=== PATIENT | female | born 1975 | race Caucasian/White ===

== ENCOUNTER 2018-09-24 14:50 | Emergency (ER) | payer OTHER ==
[~2018-09-24] VITALS: Ht 172.7 cm; Wt 131.5 kg
[2018-09-24 14:54] VITALS: BP 125/104
[2018-09-24] MEDS ORDERED: PANTOPRAZOLE 40 MG INJ VIAL IVP ONE (15:45)
[2018-09-24] MEDS ORDERED: METOCLOPRAMIDE 10 MG/2 ML INJ VIAL IVP ONE (15:45)
[2018-09-24] MEDS ORDERED: NACL 0.9% 1,000 ML IV ONE (15:45)
[2018-09-24] MEDS ORDERED: MORPHINE SULFATE 4 MG/ML SYR IVP ONE (15:45)
[2018-09-24 16:12] LABS: BASOPHILS # (AUTO) 0.1 K/uL (0.00-0.22); BASOPHILS % (AUTO) 1.3 % (0.0-2.0); EOSINOPHILS # (AUTO) 0.3 K/uL (0-0.4); EOSINOPHILS % (AUTO) 5.1 % (0.0-4.0); HEMATOCRIT 37.9 % (36-48); HEMOGLOBIN 12.5 g/dL (12.0-16.0); LYMPHOCYTES % (AUTO) 37.6 % (20.5-51.1); MEAN CORPUSCULAR HEMOGLOBIN 30 pg (27-31); MEAN CORPUSCULAR HGB CONC 33 g/dL (33-37); MEAN CORPUSCULAR VOLUME 89.6 fL (80-94); MONOCYTES # (AUTO) 0.5 K/uL (0.8-1.0); MONOCYTES % (AUTO) 9.1 % (1.7-9.3); NEUTROPHILS # (AUTO) 2.5 K/uL (1.8-7.7); NEUTROPHILS % (AUTO) 46.9 % (42.2-75.2); PLATELET COUNT (AUTO) 229 K/uL (140-450); RED BLOOD CELL COUNT(AUTO) 4.23 MIL/uL (4.20-5.40); RED CELL DISTRIBUTION WIDTH 14.2 % (11.6-13.7); WHITE BLOOD COUNT (AUTO) 5.2 K/uL (4.8-10.8)
[2018-09-24 16:13] LABS: APPEARANCE,URINE CLEAR (CLEAR); BILIRUBIN,URINE NEGATIVE (NEGATIVE); BLOOD, URINE NEGATIVE (NEGATIVE); COLOR,URINE YELLOW (YELLOW); LEUKOCYTE ESTERASE ,URINE NEGATIVE (NEGATIVE); NITRITE, URINE NEGATIVE (NEGATIVE); UGLUCOSE NEGATIVE (NEGATIVE)
[2018-09-24 16:43] LABS: ALBUMIN 3.8 g/dL (3.4-5.0); ANION GAP 14.5 (8-16); CARBON DIOXIDE 27.3 mmol/L (21-32); CREATININE 0.8 mg/dL (0.6-1.3); POTASSIUM 3.8 mmol/L (3.5-5.1); TOTAL BILIRUBIN 0.2 mg/dL (0.0-1.0)
[2018-09-24 16:50] LABS: PROTHROMBIN TIME 9.8 secs (10.8-13.4)
[2018-09-24 17:50] VITALS: BP 121/85
== END 2018-09-24 17:50 | disposition home or self-care (01) ==
LOC: MED 14:50
DX: R10.9 Unspecified abdominal pain (principal); R11.0 Nausea; K62.5 Hemorrhage of anus and rectum; Z88.6 Allergy status to analgesic agent; Z88.1 Allergy status to other antibiotic agents; Z88.2 Allergy status to sulfonamides; Z88.8 Allergy status to other drugs, medicaments and biological substances
CPT/HCPCS: 36415; 74176; 80053; 81003; 82150; 83690; 85025; 85610; 85730; 86886; 86900; 86901; 96374; 96375; 99284; C9113; J2270; J2765; J7030

== ENCOUNTER 2019-02-07 21:39 | Emergency (ER) | payer OTHER ==
[~2019-02-07] VITALS: Ht 170.2 cm; Wt 131.5 kg
--- NOTE | 2019-02-07 21:45 | NUR ---
PT AMBULATED TO ER BED 07
[2019-02-07 21:49] VITALS: BP 162/96
--- NOTE | 2019-02-07 22:01 | NUR ---
BIB SELF REPORTS SORE THROAT AND HEADACHE SINCE TODAY WITH MILD ITCHINESS TO FEET. DENIES OTHER SYMPTOMS AT THIS TIME. VSS.
[2019-02-07] MEDS ORDERED: IBUPROFEN 800 MG TAB PO ONE (22:45)
[2019-02-07 23:03] VITALS: BP 129/83
--- NOTE | 2019-02-07 23:03 | NUR ---
Patient discharged with v/s stable. Written and verbal after care instructions given and explained. Patient verbalized understanding. Ambulatory with steady gait. All questions addressed prior to discharge. Advised to follow up with PMD.
== END 2019-02-07 23:03 | disposition home or self-care (01) ==
LOC: MED 21:39
DX: B08.4 Enteroviral vesicular stomatitis with exanthem (principal); J02.8 Acute pharyngitis due to other specified organisms; B97.89 Other viral agents as the cause of diseases classified elsewhere; Z88.1 Allergy status to other antibiotic agents; Z88.2 Allergy status to sulfonamides; Z88.8 Allergy status to other drugs, medicaments and biological substances
CPT/HCPCS: 99282

== ENCOUNTER 2019-04-05 08:17 | Emergency (ER) | payer OTHER ==
[~2019-04-05] VITALS: Ht 170.2 cm; Wt 128.1 kg
[2019-04-05 08:31] VITALS: BP 139/87
[2019-04-05] MEDS ORDERED: MSCON30 PO (08:37)
--- NOTE | 2019-04-05 08:38 | NUR ---
PATIENT AMBULATED TO BED 3 AT THIS TIME.
[2019-04-05] MEDS ORDERED: KETOROLAC 30 MG/ML VIAL IVP ONE (08:45)
[2019-04-05] MEDS ORDERED: NACL 0.9% 1,000 ML IV ONE (08:45)
--- NOTE | 2019-04-05 08:54 | NUR ---
PT BIB SELF C/O SEVERE HEADACHE AND VOMITING SINCE LAST NIGHT. NON-RADIATING THROBING PAIN IN RT SIDE OF HEAD AT 10/10. PT REPORTS FREQUENT MIGRANES BUT STATES THIS ONE FEELS DIFFERENT. PT AAOX4, COOPERATIVE, FACIAL SYMMETRY INTACT, BUE AND BLE EQUAL/STRONG, GAIT STEADY, PERRLA. VSS. ER TO SEE PT. MEDHX:MIGRAINE, A-FIB, MULTIPLE SURGIES, DVT, HYSTERECTOMY
--- NOTE | 2019-04-05 09:30 | NUR ---
DR. CASTAÑEDA AT BEDSIDE EVALUATING PATIENT.
[2019-04-05] MEDS ORDERED: diphenhydrAMINE 50 MG/ML VIAL IVP ONE (09:40)
[2019-04-05] MEDS ORDERED: METOCLOPRAMIDE 10 MG/2 ML INJ VIAL IVP ONE (09:40)
--- NOTE | 2019-04-05 10:24 | NUR ---
PT WAS SLEEPING IN BED, AROUSABLE TO NAME. PT REPORTS THAT HER PAIN HAS DECREASED TO 7/10 AND IS NOW TOLERABLE. PT AMBULATED TO RESTROOM AT THIS TIME. VSS.
[2019-04-05 11:20] VITALS: BP 111/62
--- NOTE | 2019-04-05 11:20 | NUR ---
Patient discharged with v/s stable. Written and verbal after care instructions given and explained. Patient alert, oriented and verbalized understanding of instructions. Ambulatory with steady gait. All questions addressed prior to discharge. ID band removed. Patient advised to follow up with PMD. Rx of MOTRIN, ZOFRAN, AND NORCO given. Patient educated on indication of medication including possible reaction and side effects. Opportunity to ask questions provided and answered.
== END 2019-04-05 11:20 | disposition home or self-care (01) ==
LOC: MED 08:17
DX: J02.9 Acute pharyngitis, unspecified (principal); R11.2 Nausea with vomiting, unspecified; Z98.890 Other specified postprocedural states; Z90.710 Acquired absence of both cervix and uterus; Z79.899 Other long term (current) drug therapy; Z88.2 Allergy status to sulfonamides; Z88.1 Allergy status to other antibiotic agents; Z88.6 Allergy status to analgesic agent; Z88.8 Allergy status to other drugs, medicaments and biological substances
CPT/HCPCS: 81002; 81025; 96361; 96374; 96375; 99283; J1200; J1885; J2765; J7030

== ENCOUNTER 2019-06-12 15:26 | Emergency (ER) | payer OTHER ==
[~2019-06-12] VITALS: Ht 170.2 cm; Wt 131.7 kg
[~2019-06-12 15:26] MED LIST: MSCON30 PO
[2019-06-12 15:42] VITALS: BP 154/99
--- NOTE | 2019-06-12 15:42 | NUR ---
TRIAGE COMPLETE. VSS. OKAY TO WAIT IN LOBBY FOR BED IN ED. EKG SHOWN TO MD.
[2019-06-12 16:44] LABS: APPEARANCE,URINE CLEAR (CLEAR); BILIRUBIN,URINE NEGATIVE (NEGATIVE); BLOOD, URINE NEGATIVE (NEGATIVE); COLOR,URINE YELLOW (YELLOW); LEUKOCYTE ESTERASE ,URINE NEGATIVE (NEGATIVE); NITRITE, URINE NEGATIVE (NEGATIVE); PH,URINE 5.5 (5.0-9.0); UGLUCOSE NEGATIVE (NEGATIVE)
--- NOTE | 2019-06-12 17:24 | NUR ---
PT TO ER BED 6
--- NOTE | 2019-06-12 18:19 | NUR ---
PT BIB SELF WITGH C/O BILATERAL FLANK PAIN RADIATING TO CHEST/ABDOMEN X 1 DAY . PAIN AT THE EPIGASTRIC REGION , SHARP. STATES TO HAVE SQUEEZING PAIN AT THE RT FLANK. PAIN 10/10. INCREASES WITH WALKING. PT REPORTS TO HAVE SWELLING ALL OVER THE BODY WITH STOMACH DISTENSION. PT SEEN BY ER MD. WILL CONTINUE TO MOBNITOR PT. HX-AFIB, LUPUS, BACK SX WITH METAL HARDWARE
[2019-06-12] MEDS ORDERED: MORPHINE SULFATE 10 MG/ML VIAL IM ONE (18:35)
--- NOTE | 2019-06-12 18:36 | NUR ---
PT BEING TAKEN TO CT.
--- NOTE | 2019-06-12 19:24 | NUR ---
REPORT GIVEN TO PM RN AT THE BEDSIDE.
[2019-06-12 19:30] LABS: BASOPHILS % (AUTO) 0.4 % (0.0-2.0); EOSINOPHILS # (AUTO) 0.5 K/uL (0-0.4); EOSINOPHILS % (AUTO) 7.8 % (0.0-4.0); HEMATOCRIT 36.8 % (36-48); HEMOGLOBIN 12.4 g/dL (12.0-16.0); LYMPHOCYTES % (AUTO) 32.1 % (20.5-51.1); MEAN CORPUSCULAR HEMOGLOBIN 30 pg (27-31); MEAN CORPUSCULAR HGB CONC 34 g/dL (33-37); MEAN CORPUSCULAR VOLUME 90.2 fL (80-94); MONOCYTES # (AUTO) 0.4 K/uL (0.8-1.0); MONOCYTES % (AUTO) 6.5 % (1.7-9.3); NEUTROPHILS # (AUTO) 3.3 K/uL (1.8-7.7); NEUTROPHILS % (AUTO) 53.2 % (42.2-75.2); PLATELET COUNT (AUTO) 234 K/uL (140-450); RED BLOOD CELL COUNT(AUTO) 4.08 MIL/uL (4.20-5.40); RED CELL DISTRIBUTION WIDTH 13.6 % (11.6-13.7); WHITE BLOOD COUNT (AUTO) 6.2 K/uL (4.8-10.8)
[2019-06-12 19:43] LABS: ANION GAP 11.8 (8-16); CARBON DIOXIDE 27.9 mmol/L (21-32); CREATININE 0.7 mg/dL (0.6-1.3); POTASSIUM 3.7 mmol/L (3.5-5.1)
[2019-06-12 19:49] LABS: ALBUMIN 3.7 g/dL (3.4-5.0); TOTAL BILIRUBIN 0.2 mg/dL (0.0-1.0)
[2019-06-12] MEDS ORDERED: KETOROLAC 30 MG/ML VIAL IM ONE (20:20)
[2019-06-12 21:03] VITALS: BP 129/73
--- NOTE | 2019-06-12 21:03 | NUR ---
Patient discharged with v/s stable. Written and verbal after care instructions given and explained. Patient verbalized understanding. Ambulatory with to home. All questions addressed prior to discharge. Advised to follow up with PMD.
== END 2019-06-12 21:03 | disposition home or self-care (01) ==
LOC: MED 15:26
DX: R10.9 Unspecified abdominal pain (principal); G89.29 Other chronic pain; M79.605 Pain in left leg; M79.604 Pain in right leg; K76.0 Fatty (change of) liver, not elsewhere classified; Z98.890 Other specified postprocedural states; Z79.899 Other long term (current) drug therapy; Z88.1 Allergy status to other antibiotic agents; Z88.2 Allergy status to sulfonamides; Z88.8 Allergy status to other drugs, medicaments and biological substances
CPT/HCPCS: 36415; 74176; 80053; 81003; 81025; 83690; 85025; 96372; 99284; J1885; J2270; 93005

== ENCOUNTER 2019-07-06 23:41 | Emergency (ER) | payer OTHER ==
[~2019-07-06] VITALS: Ht 172.7 cm; Wt 117.9 kg
[2019-07-06 23:49] VITALS: BP 139/89
--- NOTE | 2019-07-06 23:49 | NUR ---
PT AMBULATED TO BED #12
--- NOTE | 2019-07-07 00:15 | NUR ---
43/F PRESENTS TO ED, C/O SUDDEN ONSET SHARP RLQ PAIN, X30 MINS. REPORTS N/V. REPORTS NORMAL BM, DENIES CONSTIPATION OR DIARRHEA. AFEBRILE. PT AWAKE AND ALERT, IN MODERATE PAIN DISTRESS, SKIN NORMAL COLOR WARM AND DRY, RR EVEN AND UNLABORED. HX LUPUS, DVT, A.FIB Addendum: 07/07/19 at 0043 by [email or web address] ADDED MED HX: GASTRIC ULCER
--- NOTE | 2019-07-07 00:46 | NUR ---
PT EVALUATED BY DR. ENNIS
[2019-07-07] MEDS ORDERED: NACL 0.9% 1,000 ML IV ONE (00:47)
[2019-07-07] MEDS ORDERED: MORPHINE SULFATE 4 MG/ML SYR IVP ONE (00:50)
[2019-07-07] MEDS ORDERED: METOCLOPRAMIDE 10 MG/2 ML INJ VIAL IVP ONE (00:50)
[2019-07-07 01:12] LABS: BASOPHILS # (AUTO) 0.1 K/uL (0.00-0.22); BASOPHILS % (AUTO) 1.2 % (0.0-2.0); EOSINOPHILS # (AUTO) 0.3 K/uL (0-0.4); EOSINOPHILS % (AUTO) 4.1 % (0.0-4.0); HEMATOCRIT 35.2 % (36-48); HEMOGLOBIN 11.9 g/dL (12.0-16.0); LYMPHOCYTES % (AUTO) 32.7 % (20.5-51.1); MEAN CORPUSCULAR HEMOGLOBIN 30 pg (27-31); MEAN CORPUSCULAR HGB CONC 34 g/dL (33-37); MEAN CORPUSCULAR VOLUME 89.6 fL (80-94); MONOCYTES # (AUTO) 0.4 K/uL (0.8-1.0); NEUTROPHILS # (AUTO) 3.4 K/uL (1.8-7.7); PLATELET COUNT (AUTO) 202 K/uL (140-450); RED BLOOD CELL COUNT(AUTO) 3.93 MIL/uL (4.20-5.40); RED CELL DISTRIBUTION WIDTH 13.6 % (11.6-13.7); WHITE BLOOD COUNT (AUTO) 6.2 K/uL (4.8-10.8)
[2019-07-07 01:13] LABS: APPEARANCE,URINE CLOUDY (CLEAR); BILIRUBIN,URINE NEGATIVE (NEGATIVE); BLOOD, URINE NEGATIVE (NEGATIVE); COLOR,URINE YELLOW (YELLOW); LEUKOCYTE ESTERASE ,URINE NEGATIVE (NEGATIVE); NITRITE, URINE NEGATIVE (NEGATIVE); UGLUCOSE NEGATIVE (NEGATIVE)
--- NOTE | 2019-07-07 01:18 | NUR ---
PT AT CT DURING THIS TIME
[2019-07-07 01:27] LABS: ALBUMIN 3.7 g/dL (3.4-5.0); ANION GAP 10.8 (8-16); CARBON DIOXIDE 28.5 mmol/L (21-32); CREATININE 0.9 mg/dL (0.6-1.3); POTASSIUM 3.3 mmol/L (3.5-5.1); TOTAL BILIRUBIN 0.2 mg/dL (0.0-1.0)
[2019-07-07] MEDS ORDERED: MORPHINE SULFATE 10 MG/ML VIAL IVP ONE (02:20)
[2019-07-07] MEDS ORDERED: KETOROLAC 30 MG/ML VIAL IVP ONE (02:20)
--- NOTE | 2019-07-07 02:30 | NUR ---
PT RESTING IN BED. NO SIGNS OF DISTRESS NOTED. WILL CONTINUE TO MONITOR.
[2019-07-07 04:00] VITALS: BP 126/75
--- NOTE | 2019-07-07 04:00 | NUR ---
Patient discharged with v/s stable. Written and verbal after care instructions given and explained. Patient alert, oriented and verbalized understanding of instructions. Ambulatory with steady gait. All questions addressed prior to discharge. ID band removed. Patient advised to follow up with PMD. Rx of NORCO, NAPROSYN given. Patient educated on indication of medication including possible reaction and side effects. Opportunity to ask questions provided and answered.
== END 2019-07-07 04:00 | disposition home or self-care (01) ==
LOC: MED 23:41
DX: R10.31 Right lower quadrant pain (principal); R11.2 Nausea with vomiting, unspecified; I48.91 Unspecified atrial fibrillation; Z86.718 Personal history of other venous thrombosis and embolism; Z98.890 Other specified postprocedural states; Z79.891 Long term (current) use of opiate analgesic; Z88.2 Allergy status to sulfonamides; Z88.1 Allergy status to other antibiotic agents; Z88.8 Allergy status to other drugs, medicaments and biological substances; Z88.5 Allergy status to narcotic agent
CPT/HCPCS: 36415; 74176; 80053; 81003; 81025; 83690; 85025; 96361; 96374; 96375; 96376; 99284; J1885; J2270; J2765; J7030

== ENCOUNTER 2019-11-04 13:05 | Emergency (ER) | payer OTHER ==
[~2019-11-04] VITALS: Ht 167.6 cm; Wt 121.8 kg
[2019-11-04 13:13] VITALS: BP 154/103
[2019-11-04] MEDS ORDERED: ACETAMINOPHEN 325 MG TAB PO ONE (13:35)
[2019-11-04] MEDS ORDERED: NACL 0.9% 1,000 ML IV ONE ×2 (13:35→16:10)
--- NOTE | 2019-11-04 13:37 | NUR ---
PT C/O SYNCOPE EPISODE WHILE AT WORK AROUND 1140 TODAY. DENIES HITTING HEAD. STATES 8/10 HEADACHE. VSS; PATIENT POSITIONED FOR COMFORT; HOB ELEVATED; BEDRAILS UP X2; BED DOWN. ER MD MADE AWARE OF PT STATUS. PT IS ON MINITOR.
--- NOTE | 2019-11-04 13:51 | NUR ---
Patient taken to CT scan via wheelchair by tech.
[2019-11-04 14:22] LABS: BASOPHILS % (AUTO) 0.3 % (0.0-2.0); EOSINOPHILS # (AUTO) 0.1 K/uL (0-0.4); EOSINOPHILS % (AUTO) 2.6 % (0.0-4.0); HEMATOCRIT 35.5 % (36-48); HEMOGLOBIN 11.8 g/dL (12.0-16.0); LYMPHOCYTES # (AUTO) 1.9 K/uL (2.5-16.5); LYMPHOCYTES % (AUTO) 35.4 % (20.5-51.1); MEAN CORPUSCULAR HEMOGLOBIN 30 pg (27-31); MEAN CORPUSCULAR HGB CONC 33 g/dL (33-37); MEAN CORPUSCULAR VOLUME 91.8 fL (80-94); MONOCYTES # (AUTO) 0.5 K/uL (0.8-1.0); MONOCYTES % (AUTO) 8.7 % (1.7-9.3); NEUTROPHILS # (AUTO) 2.8 K/uL (1.8-7.7); PLATELET COUNT (AUTO) 223 K/uL (140-450); RED BLOOD CELL COUNT(AUTO) 3.87 MIL/uL (4.20-5.40); RED CELL DISTRIBUTION WIDTH 15.3 % (11.6-13.7); WHITE BLOOD COUNT (AUTO) 5.3 K/uL (4.8-10.8)
--- NOTE | 2019-11-04 14:37 | NUR ---
Danielle peres in ED - 11/04/19 at 1438 by MEDSP PT AMBULATED TO BATHROOM W/ STEADY GAIT. PT REPORTS HAVING SEVERE MADRIGAL STILL, DR. EDOUARD NOTIFIED.
--- NOTE | 2019-11-04 14:38 | NUR ---
PT AMBULATED TO BATHROOM W/ STEADY GAIT. PT REPORTS HAVING SEVERE MADRIGAL STILL, DR. EDOUARD NOTIFIED.
[2019-11-04] MEDS ORDERED: KETOROLAC 30 MG/ML VIAL IVP ONE (14:40)
[2019-11-04 14:42] LABS: ALBUMIN 3.9 g/dL (3.4-5.0); ANION GAP 11.1 (8-16); CARBON DIOXIDE 27.6 mmol/L (21-32); CREATININE 0.7 mg/dL (0.6-1.3); POTASSIUM 3.7 mmol/L (3.5-5.1); TOTAL BILIRUBIN 0.3 mg/dL (0.0-1.0)
[2019-11-04] MEDS ORDERED: MORPHINE SULFATE 4 MG/ML SYR IVP ONE (15:00)
[2019-11-04] MEDS ORDERED: METOCLOPRAMIDE 10 MG/2 ML INJ VIAL IVP ONE (15:00)
--- NOTE | 2019-11-04 15:18 | NUR ---
DR. EDOUARD IS AT BEDSIDE FOR LUMBAR PUNCTURE PROCEDURE.
[2019-11-04] MEDS ORDERED: LIDOCAINE 2% 1000 MG/50 ML VIAL INJ ONE (15:25)
[2019-11-04] MEDS ORDERED: HYDROmorphone PFS 2 MG/ML SYR IVP ONE (15:40)
--- NOTE | 2019-11-04 16:32 | NUR ---
PT IS LYING FLAT IN THE BED AND ON THE MONITOR. WILL CONTINUE MONITOR PT'S VITAL SIGNS.
[2019-11-04 17:18] VITALS: BP 99/54
--- NOTE | 2019-11-04 17:18 | NUR ---
Patient does not wish to proceed with medical care recommended by DR EDOUARD. Patient given information related to possible complications, up to and including , which could occur as a result of leaving hospital at this time. Patient verbalizes understanding of risks involved leaving against medical advice. Patient has signed AMA form.
== END 2019-11-04 17:18 | disposition left against medical advice (07) ==
LOC: MED 13:05
DX: R51 Headache (principal); R55 Syncope and collapse; R07.9 Chest pain, unspecified; Z86.79 Personal history of other diseases of the circulatory system; Z98.890 Other specified postprocedural states; Z88.2 Allergy status to sulfonamides; Z88.8 Allergy status to other drugs, medicaments and biological substances; Z88.1 Allergy status to other antibiotic agents; Z88.6 Allergy status to analgesic agent; Z79.899 Other long term (current) drug therapy
CPT/HCPCS: 36415; 62270; 70450; 80053; 81025; 84484; 85025; 93005; 96361; 96374; 96375; 99285; J1170; J1885; J2001; J2270; J2765; J7030

== ENCOUNTER 2020-02-17 19:11 | Emergency (ER) | payer OTHER ==
[~2020-02-17] VITALS: Ht 172.7 cm; Wt 112.9 kg
[2020-02-17 19:22] VITALS: BP 155/98
[2020-02-17] MEDS ORDERED: HYDROcodone/APAP 5/325 MG 1 TAB TAB PO ONE (22:15)
[2020-02-17 22:44] VITALS: BP 148/81
== END 2020-02-17 22:44 | disposition home or self-care (01) ==
LOC: MED 19:11
DX: M25.561 Pain in right knee (principal); I51.89 Other ill-defined heart diseases; Z88.2 Allergy status to sulfonamides; Z88.1 Allergy status to other antibiotic agents; Z88.6 Allergy status to analgesic agent; Z88.8 Allergy status to other drugs, medicaments and biological substances; Z88.3 Allergy status to other anti-infective agents; Z91.013 Allergy to seafood; Z79.899 Other long term (current) drug therapy; Z98.890 Other specified postprocedural states
CPT/HCPCS: 73562; 93971; 99284; Q0092

== ENCOUNTER 2020-03-18 12:55 | Emergency (ER) | payer OTHER ==
[~2020-03-18] VITALS: Ht 172.7 cm; Wt 112.0 kg
[2020-03-18 13:10] VITALS: BP 139/74
--- NOTE | 2020-03-18 13:22 | NUR ---
pt amb to bed 04
--- NOTE | 2020-03-18 13:25 | NUR ---
DR. RANGEL AT BEDSIDE.
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
[2020-03-18] MEDS ORDERED: KETOROLAC 30 MG/ML VIAL IVP ONE (13:50)
[2020-03-18] MEDS ORDERED: NACL 0.9% 500 ML IV ONE (13:50)
[2020-03-18] MEDS ORDERED: TETRACAINE HCL/PF 0.5% OPTH 4 ML BTL ONE (14:19)
[2020-03-18] MEDS ORDERED: TETRACAINE 1% 2 ML AMP INJ ONE (14:20)
[2020-03-18 15:16] VITALS: BP 132/72
--- NOTE | 2020-03-18 15:17 | NUR ---
Patient discharged with v/s stable. Written and verbal after care instructions given and explained. Patient alert, oriented and verbalized understanding of instructions. Ambulatory with steady gait. All questions addressed prior to discharge. ID band removed. Patient advised to follow up with PMD. Rx of KETOROLAC given. Patient educated on indication of medication including possible reaction and side effects. Opportunity to ask questions provided and answered.
== END 2020-03-18 15:16 | disposition home or self-care (01) ==
LOC: MED 12:55
DX: H10.13 Acute atopic conjunctivitis, bilateral (principal); K59.00 Constipation, unspecified; I82.401 Acute embolism and thrombosis of unspecified deep veins of right lower extremity; I51.89 Other ill-defined heart diseases; Z88.2 Allergy status to sulfonamides; Z88.1 Allergy status to other antibiotic agents; Z88.6 Allergy status to analgesic agent; Z88.3 Allergy status to other anti-infective agents; Z91.013 Allergy to seafood; Z79.899 Other long term (current) drug therapy; Z87.39 Personal history of other diseases of the musculoskeletal system and connective tissue
CPT/HCPCS: 74022; 96374; 99283; J1885; J7030; J3490

== ENCOUNTER 2023-01-28 19:17 | Emergency (ER) | payer OTHER ==
[~2023-01-28] VITALS: Ht 167.6 cm; Wt 108.9 kg
--- NOTE | 2023-01-28 19:28 | NUR ---
PT TAKEN TO BED 1
[2023-01-28 19:32] VITALS: BP 162/97
[2023-01-28] MEDS ORDERED: LORazepam 2 MG/ML VIAL IVP ONE (19:35)
[2023-01-28] MEDS ORDERED: NACL 0.9% 1,000 ML IV ONE (19:35)
[2023-01-28 20:03] LABS: BASOPHILS % (AUTO) 0.7 % (0.0-2.0); EOSINOPHILS % (AUTO) 0.3 % (0.0-4.0); HEMATOCRIT 35.7 % (36-48); HEMOGLOBIN 12.4 g/dL (12.0-16.0); LYMPHOCYTES # (AUTO) 1.2 K/uL (2.5-16.5); LYMPHOCYTES % (AUTO) 17.5 % (20.5-51.1); MEAN CORPUSCULAR HEMOGLOBIN 31 pg (27-31); MEAN CORPUSCULAR HGB CONC 35 g/dL (33-37); MEAN CORPUSCULAR VOLUME 88.2 fL (80-94); MONOCYTES # (AUTO) 0.5 K/uL (0.8-1.0); MONOCYTES % (AUTO) 7.3 % (1.7-9.3); NEUTROPHILS # (AUTO) 5.2 K/uL (1.8-7.7); NEUTROPHILS % (AUTO) 74.2 % (42.2-75.2); PLATELET COUNT (AUTO) 260 K/uL (140-450); RED BLOOD CELL COUNT(AUTO) 4.05 MIL/uL (4.20-5.40); RED CELL DISTRIBUTION WIDTH 14.2 % (11.6-13.7)
[2023-01-28 20:16] LABS: PROTHROMBIN TIME 9.8 secs (10.8-13.4)
[2023-01-28 20:19] LABS: ALBUMIN 3.6 g/dL (3.4-5.0); ANION GAP 11.3 (8-16); CARBON DIOXIDE 26.8 mmol/L (21-32); CREATININE 0.8 mg/dL (0.6-1.3); POTASSIUM 3.1 mmol/L (3.5-5.1); TOTAL BILIRUBIN 0.3 mg/dL (0.0-1.0)
[2023-01-28 20:25] LABS: LIPASE 72 U/L (73-393)
[2023-01-28] MEDS ORDERED: LORazepam 2 MG/ML VIAL ONE (20:37)
--- NOTE | 2023-01-28 20:51 | NUR ---
Patient asked to give urine for test. Patient stated, "I can't be , I have no uterus."
--- NOTE | 2023-01-28 21:00 | NUR ---
Patient resting in bed, A/Ox4, chest rise and fall symmetrical, on monitor, no s/s of distress
[2023-01-28] MEDS ORDERED: ACETAMINOPHEN EXTRA STRENGTH 500 MG TAB PO ONE (21:30)
[2023-01-28] MEDS ORDERED: diphenhydrAMINE 50 MG/ML VIAL IVP ONE (21:30)
[2023-01-28] MEDS ORDERED: KETOROLAC 30 MG/ML VIAL IVP ONE (21:30)
[2023-01-28] MEDS ORDERED: METOCLOPRAMIDE 10 MG/2 ML INJ VIAL IVP ONE (21:30)
--- NOTE | 2023-01-28 22:00 | NUR ---
Patient resting in bed, A/Ox4, chest rise and fall symmetrical, on monitor, no c/o pain or s/s of distress.
[2023-01-28] MEDS ORDERED: METO-485 PO (22:55)
[2023-01-28] MEDS ORDERED: ACET-10509 PO (22:55)
[2023-01-29 00:09] VITALS: BP 129/84
== END 2023-01-28 23:40 | disposition home or self-care (01) ==
LOC: MED 19:17
DX: R07.89 Other chest pain (principal); F43.20 Adjustment disorder, unspecified; F43.0 Acute stress reaction; I10 Essential (primary) hypertension; I25.10 Atherosclerotic heart disease of native coronary artery without angina pectoris; Z88.2 Allergy status to sulfonamides; Z88.5 Allergy status to narcotic agent; Z88.8 Allergy status to other drugs, medicaments and biological substances; Z79.899 Other long term (current) drug therapy
CPT/HCPCS: 36415; 71045; 80053; 83690; 83880; 84484; 85025; 85610; 85730; 93005; 96361; 96374; 96375; 99285; J1200; J1885; J2060; J2765; J7030

== ENCOUNTER 2023-12-15 12:29 | Observation (INO) | payer OTHER ==
[~2023-12-15] VITALS: Ht 170.2 cm; Wt 99.8 kg
[~2023-12-15 12:29] MED LIST changes: +ACET-10509 PO; +METO-485 PO
[2023-12-15 12:48] VITALS: BP 154/87; PULSE 83; RESP 18; TEMP 97.1; O2SAT 98
[2023-12-15 13:56] LABS: BASOPHILS # (AUTO) 0.1 K/uL (0.00-0.22); BASOPHILS % (AUTO) 1.3 % (0.0-2.0); EOSINOPHILS # (AUTO) 0.1 K/uL (0-0.4); EOSINOPHILS % (AUTO) 1.3 % (0.0-4.0); HEMATOCRIT 36.5 % (36-48); HEMOGLOBIN 12.7 g/dL (12.0-16.0); LYMPHOCYTES # (AUTO) 1.9 K/uL (2.5-16.5); LYMPHOCYTES % (AUTO) 28.4 % (20.5-51.1); MEAN CORPUSCULAR HEMOGLOBIN 32 pg (27-31); MEAN CORPUSCULAR HGB CONC 35 g/dL (33-37); MEAN CORPUSCULAR VOLUME 92.3 fL (80-94); MONOCYTES # (AUTO) 0.6 K/uL (0.8-1.0); MONOCYTES % (AUTO) 9.2 % (1.7-9.3); NEUTROPHILS # (AUTO) 3.9 K/uL (1.8-7.7); NEUTROPHILS % (AUTO) 59.8 % (42.2-75.2); PLATELET COUNT (AUTO) 244 K/uL (140-450); RED BLOOD CELL COUNT(AUTO) 3.96 MIL/uL (4.20-5.40); RED CELL DISTRIBUTION WIDTH 13.8 % (11.6-13.7); WHITE BLOOD COUNT (AUTO) 6.5 K/uL (4.8-10.8)
[2023-12-15 14:24] LABS: ANION GAP 10.6 (8-16); CALCIUM 8.3 mg/dL (8.5-10.1); CARBON DIOXIDE 30.1 mmol/L (21-32); CREATININE 0.7 mg/dL (0.6-1.3); POTASSIUM 3.7 mmol/L (3.5-5.1)
[2023-12-15] MEDS: MORPHINE SULFATE 4 MG/ML SYR IVP ONE ×2 (14:47→18:28)
[2023-12-15 15:18] LABS: ALBUMIN 3.6 g/dL (3.4-5.0); BILIRUBIN,DIRECT 0.1 mg/dL (0.0-0.3); TOTAL BILIRUBIN 0.3 mg/dL (0.0-1.0)
[2023-12-15] MEDS ORDERED: IMI50 PO (18:25)
[2023-12-15] MEDS ORDERED: VITA59DR PO (18:25)
[2023-12-15] MEDS ORDERED: FURO-572 PO (18:25)
[2023-12-15] MEDS ORDERED: ACET-512 PO (18:25)
[2023-12-15] MEDS ORDERED: MSCON30 PO (18:25)
[2023-12-15] MEDS ORDERED: MEX2.5 (18:25)
[2023-12-15] MEDS ORDERED: HYDR200T65 PO (18:25)
[2023-12-15] MEDS ORDERED: RIME75TA PO (18:25)
[2023-12-15] MEDS ORDERED: TIZA4CAP PO (18:26)
[2023-12-15] MEDS ORDERED: ONDANSETRON 4 MG/2 ML VIAL IVP PRN (18:35)
[2023-12-15 20:55] VITALS: BP 142/59; PULSE 72; RESP 18; TEMP 99.2; O2SAT 98
[2023-12-15 21:02] VITALS: PULSE 82
[2023-12-15] MEDS: HYDROmorphone 1 MG/ML AMP IVP PRN (22:13)
[2023-12-16] VITALS (10 sets, daily range): BP systolic 127–163; BP diastolic 65–76; PULSE 69–83; RESP 18–19; TEMP 96.8–98.6; O2SAT 96–100
[2023-12-16 07:31] LABS: BASOPHILS # (AUTO) 0.1 K/uL (0.00-0.22); BASOPHILS % (AUTO) 0.8 % (0.0-2.0); EOSINOPHILS # (AUTO) 0.1 K/uL (0-0.4); HEMATOCRIT 34.5 % (36-48); HEMOGLOBIN 12.1 g/dL (12.0-16.0); LYMPHOCYTES # (AUTO) 1.4 K/uL (2.5-16.5); LYMPHOCYTES % (AUTO) 19.9 % (20.5-51.1); MEAN CORPUSCULAR HEMOGLOBIN 32 pg (27-31); MEAN CORPUSCULAR HGB CONC 35 g/dL (33-37); MONOCYTES # (AUTO) 0.5 K/uL (0.8-1.0); MONOCYTES % (AUTO) 7.3 % (1.7-9.3); PLATELET COUNT (AUTO) 205 K/uL (140-450); RED BLOOD CELL COUNT(AUTO) 3.75 MIL/uL (4.20-5.40); RED CELL DISTRIBUTION WIDTH 13.4 % (11.6-13.7); WHITE BLOOD COUNT (AUTO) 7.1 K/uL (4.8-10.8)
[2023-12-16 07:52] LABS: ALBUMIN 3.2 g/dL (3.4-5.0); ANION GAP 10.6 (8-16); CALCIUM 8.1 mg/dL (8.5-10.1); CARBON DIOXIDE 29.2 mmol/L (21-32); CREATININE 0.7 mg/dL (0.6-1.3); MAGNESIUM 2.2 mg/dL (1.8-2.4); POTASSIUM 3.8 mmol/L (3.5-5.1); TOTAL BILIRUBIN 0.5 mg/dL (0.0-1.0); TOTAL PROTEIN, SERUM 6.3 g/dL (6.4-8.2)
[2023-12-16] MEDS: ALUMINUM HYD/MAG/SIMETHICONE 30 ML UDC PO PRN (10:40)
[2023-12-16] MEDS: DICYCLOMINE HCL LIQUID 10 MG/5 ML UDC PO PRN (10:40)
[2023-12-16] MEDS: MORPHINE SULFATE 2 MG/ML SYR IVP PRN (11:42)
[2023-12-16] MEDS: ACETAMINOPHEN 325 MG TAB PO PRN (16:21)
[2023-12-16] MEDS ORDERED: METOCLOPRAMIDE 10 MG/2 ML INJ VIAL IVP PRN (17:50)
[2023-12-16] MEDS ORDERED: MEDS-TO-BEDS MC SCH (21:00)
== END 2023-12-16 19:13 | disposition home or self-care (01) ==
LOC: MED 12:29 → MTU 18:39
PROVIDERS: ADMIT Hospitalist; ATTEND Hospitalist
DX: R07.89 Other chest pain (principal); R11.0 Nausea; M79.89 Other specified soft tissue disorders; M06.9 Rheumatoid arthritis, unspecified; I48.91 Unspecified atrial fibrillation; I25.2 Old myocardial infarction; Z79.899 Other long term (current) drug therapy; Z98.890 Other specified postprocedural states; Z91.013 Allergy to seafood; Z91.048 Other nonmedicinal substance allergy status; Z86.711 Personal history of pulmonary embolism; Z86.718 Personal history of other venous thrombosis and embolism
CPT/HCPCS: 36415; 71045; 71250; 78580; 80048; 80053; 80076; 83735; 83880; 84484; 85025; 85379; 87081; 93005; 93970; 96374; 96375; 96376; 99285; A9540; G0378; J1170; J2270; Q0092

== ENCOUNTER 2024-05-14 19:04 | Emergency (ER) | payer OTHER ==
[~2024-05-14] VITALS: Ht 172.7 cm; Wt 109.9 kg
[~2024-05-14 19:04] MED LIST changes: -ACET-10509 PO; +ACET-512 PO; +FURO-572 PO; +HYDR-5458 PO; +IMI50 PO; +MEX2.5; +RIME75TA PO; +TIZA4CAP PO; +VITA59DR PO
[2024-05-14 19:35] VITALS: BP 174/103; PULSE 87; RESP 20; TEMP 98.8; O2SAT 100
[2024-05-14 20:28] LABS: BASOPHILS # (AUTO) 0.1 K/uL (0.00-0.22); BASOPHILS % (AUTO) 1.1 % (0.0-2.0); EOSINOPHILS # (AUTO) 0.4 K/uL (0-0.4); EOSINOPHILS % (AUTO) 6.9 % (0.0-4.0); HEMOGLOBIN 12.9 g/dL (12.0-16.0); LYMPHOCYTES # (AUTO) 1.9 K/uL (2.5-16.5); LYMPHOCYTES % (AUTO) 30.7 % (20.5-51.1); MEAN CORPUSCULAR HEMOGLOBIN 31 pg (27-31); MEAN CORPUSCULAR HGB CONC 34 g/dL (33-37); MEAN CORPUSCULAR VOLUME 91.7 fL (80-94); MONOCYTES # (AUTO) 0.7 K/uL (0.8-1.0); MONOCYTES % (AUTO) 10.8 % (1.7-9.3); NEUTROPHILS # (AUTO) 3.1 K/uL (1.8-7.7); NEUTROPHILS % (AUTO) 50.5 % (42.2-75.2); PLATELET COUNT (AUTO) 224 K/uL (140-450); RED BLOOD CELL COUNT(AUTO) 4.15 MIL/uL (4.20-5.40); RED CELL DISTRIBUTION WIDTH 13.5 % (11.6-13.7); WHITE BLOOD COUNT (AUTO) 6.1 K/uL (4.8-10.8)
[2024-05-14] MEDS: HYDROmorphone PFS 2 MG/ML SYR IVP ONE (20:29)
[2024-05-14 20:36] LABS: ANION GAP 12.9 (8-16); CALCIUM 8.9 mg/dL (8.5-10.1); CARBON DIOXIDE 29.3 mmol/L (21-32); CREATININE 0.9 mg/dL (0.6-1.3); POTASSIUM 3.2 mmol/L (3.5-5.1)
[2024-05-14 20:40] LABS: INR 0.95 (0.8-1.2); PARTIAL THROMBOPLASTIN TIME 26.1 secs (22-35.6)
[2024-05-14] MEDS ORDERED: NAPR-1704 PO (22:06)
[2024-05-14] MEDS: KETOROLAC 30 MG/ML VIAL IVP ONE (22:20)
[2024-05-14] MEDS: HYDROmorphone 1 MG/ML AMP IVP ONE (22:21)
[2024-05-14] MEDS: POTASSIUM CHLORIDE 10 MEQ TABER PO ONE (22:32)
[2024-05-14 22:51] VITALS: BP 149/73; PULSE 79; RESP 18; TEMP 98.8; O2SAT 100
== END 2024-05-14 22:51 | disposition home or self-care (01) ==
LOC: MED 19:04
DX: M35.2 Behcet's disease (principal); M79.605 Pain in left leg; M06.9 Rheumatoid arthritis, unspecified; Z98.890 Other specified postprocedural states; Z86.718 Personal history of other venous thrombosis and embolism; Z79.899 Other long term (current) drug therapy; Z88.5 Allergy status to narcotic agent; Z88.2 Allergy status to sulfonamides; Z88.1 Allergy status to other antibiotic agents; Z88.8 Allergy status to other drugs, medicaments and biological substances; Z91.013 Allergy to seafood
CPT/HCPCS: 36415; 80048; 85025; 85610; 85730; 93970; 96374; 96375; 96376; 99285; J1170; J1885; Q0092

== ENCOUNTER 2024-06-29 17:58 | Emergency (ER) | payer OTHER ==
[~2024-06-29] VITALS: Ht 170.2 cm; Wt 107.5 kg
[~2024-06-29 17:58] MED LIST changes: +NAPR-1704 PO
[2024-06-29 18:00] VITALS: BP 164/102; PULSE 94; RESP 18; TEMP 98.8; O2SAT 99
[2024-06-29] MEDS: MORPHINE SULFATE 4 MG/ML SYR IM ONE (19:41)
[2024-06-29] MEDS ORDERED: LORazepam 1 MG TAB PO ONE (21:05)
[2024-06-29] MEDS: diphenhydrAMINE 50 MG/ML VIAL IM ONE (21:10)
[2024-06-29 21:19] VITALS: BP 152/96; PULSE 92; RESP 18; TEMP 98.2; O2SAT 99
== END 2024-06-29 21:27 | disposition home or self-care (01) ==
LOC: MED 17:58
DX: S80.02XA Contusion of left knee, initial encounter (principal); I83.93 Asymptomatic varicose veins of bilateral lower extremities; I48.91 Unspecified atrial fibrillation; Z86.718 Personal history of other venous thrombosis and embolism; Z79.899 Other long term (current) drug therapy; Z88.2 Allergy status to sulfonamides; Z91.013 Allergy to seafood; Z91.040 Latex allergy status; Z88.8 Allergy status to other drugs, medicaments and biological substances; W18.39XA Other fall on same level, initial encounter; Y93.89 Activity, other specified; Y92.89 Other specified places as the place of occurrence of the external cause; Y99.8 Other external cause status
CPT/HCPCS: 73562; 93971; 96372; 99285; J1200; J2270; Q0092